=== PATIENT | female | born 1990 | race Two or more races ===

== ENCOUNTER 2020-05-21 01:54 | Emergency (ER) | payer OTHER ==
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
[2020-05-21 03:26] VITALS: BMI 25.7
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
[2020-05-21 08:29] VITALS: BP 103/66; PULSE 79; TEMP 98
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
== END 2020-05-21 10:10 | disposition home or self-care (01) ==
LOC: JER 01:54
DX: T74.11XA Adult physical abuse, confirmed, initial encounter (principal)
CPT/HCPCS: 70450-TC; 70486-TC; 84703; 99284-25

== ENCOUNTER 2020-05-23 13:10 | Emergency (ER) | payer OTHER ==
[2020-05-23 13:17] VITALS: TEMP 98.4; BMI 27.4
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
[2020-05-23] MEDS ORDERED: ACETAMINOPHEN 1000 MG/100 ML VIAL (NON FORMULARY) IVPB ONE (13:45)
[2020-05-23] MEDS ORDERED: SODIUM CHLORIDE 0.9% 500 ML INFUS.BAG IV ONE (13:45)
[2020-05-23] MEDS ORDERED: ACETAMINOPHEN INJECTION 100 ML IVPB ONE (13:54)
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
[2020-05-23 15:55] VITALS: BP 118/72; PULSE 66
== END 2020-05-23 15:55 | disposition home or self-care (01) ==
LOC: JER 13:10
PROC: 3E033NZ Introduction of Analgesics, Hypnotics, Sedatives into Peripheral Vein, Percutaneous Approach (ICD-10-PCS; principal; 2020-05-23)
DX: R51 Headache (principal)
CPT/HCPCS: 99284-25; J0131

== ENCOUNTER 2022-04-25 23:02 | Emergency (ER) | payer OTHER ==
[2022-04-25 23:09] VITALS: BP 106/71; PULSE 74; TEMP 98.4; BMI 32.9
[2022-04-26] MEDS ORDERED: ACETAMINOPHEN 325 MG TABLET (FP) PO ONE (00:07)
[2022-04-26] MEDS ORDERED: ACETAMINOPHEN 325 MG TABLET (FP) ONE (00:13)
== END 2022-04-26 00:39 | disposition home or self-care (01) ==
LOC: JER 23:02
DX: R07.0 Pain in throat (principal); K14.6 Glossodynia
CPT/HCPCS: 87651; 99283-25